=== PATIENT | male | born 1990 | race Caucasian/White ===

== ENCOUNTER 2024-03-11 16:42 | Emergency (ER) | payer MEDICARE, MEDICAID, SELFPAY ==
[2024-03-11 16:47] VITALS: BP 122/85; PULSE 73; RESP 18; TEMP 36.8; O2SAT 95
--- NOTE | 2024-03-11 17:10 | ED_ITS ---
HPI - Head Injury General Chief complaint: Head Injury/Pain Stated complaint: hit head Time Seen by Provider: 03/11/24 16:59 History of Present Illness HPI Narrative: This 33-year-old male is a resident at [facility] and comes in because of a head injury that occurred prior to arrival. He comes in because of protocol at their facility when any such injury occurs. He was sitting on the toilet 10 lost his balance and hit his forehead. He does not have any sign of injury. He did not have any loss of consciousness. He does not report any nausea or headache. He was able to get up and function normally. Related Data Home Medications ?Medication ?Instructions ?Recorded ?Confirmed cenobamate 100 mg tablet (Xcopri) 100 mg PO DAILY 06/01/23 06/01/23 cenobamate 200 mg tablet (Xcopri) 200 mg PO DAILY 06/01/23 06/01/23 diazepam 5 mg/mL oral concentrate mg PO 06/01/23 06/01/23 (Diazepam Intensol) lacosamide 100 mg tablet 100 mg PO DAILY 06/01/23 06/01/23 lacosamide 200 mg tablet mg PO 06/01/23 06/01/23 minocycline 100 mg capsule 100 mg PO BID 06/01/23 06/01/23 sertraline 100 mg tablet 100 mg PO DAILY 06/01/23 06/01/23 Allergies Allergy/AdvReac Type Severity Reaction Status Date / Time No Known Drug Allergies Allergy Verified 06/01/23 09:28 Review of Systems Status of ROS: Reports: 10 or more systems reviewed and unremarkable except as noted in History and below Narrative: Constitutional: No fevers, no weight gain or loss. Eyes: No discharge. No vision changes. HENT: No congestion, no sore throat, no ear pain. Cardiovascular: No chest pain, no palpitations. Respiratory: No shortness of breath, no wheezes, no cough. Gastrointestinal: No abdominal pain, no vomiting, no diarrhea. Genitourinary: No dysuria, no hematuria. Musculoskeletal: Normal range of motion. Skin: No rashes, no pruritis. Neurological: No dizziness, weakness, sensory change, speech change. Endo/Heme/Allergies: No bruising or bleeding. No polydipsia. Pysch: no suicidality, no anxiety, no insomnia. All other systems reviewed and are negative. PFSH PFSH Social History (Updated 06/01/23 @ 12:08 by Michaelle Villegas NP) Narrative: Lives in a senior living What is your current living situation?: I presently have a place to live Smoking Status: Never smoker Do you use any of these nicotine containing products: None How often do you have a drink containing alcohol: never AUDIT-C Alcohol total score: 0 Non-prescribed substance use: denies use Exam Narrative: Exam Narrative: Constitutional: Well-developed, well-nourished, no acute distress. HEENT: Normocephalic, atraumatic. No sign of injury. No hematoma or skin injury. Neck: Normal range of motion. Nontender. Supple. Heart: Regular. No murmurs. Normal rate. Intact distal pulses. Lungs: Clear to auscultation. No chest discomfort. No wheezes, rhonchi, or rales. Abdomen: Normal bowel sounds. Nontender. No rebound tenderness. Genitalia: Deferred. Back: No midline tenderness. Normal range of motion. Extremities: Normal range of motion. No injury. Skin: Intact. No rash. Warm. No erythema or pallor. Neurologic: No altered sensation. No weakness. Alert and oriented. Psychiatric: No suicidality. No anxiety or depression. No insomnia. Nursing notes and vitals signs are reviewed. Const: Vital Signs, click to edit/add: Vital Signs - 24 hr 03/11/24 16:47 Temperature 98.3 F Pulse Rate [Right Pulse Oximeter] 73 Respiratory Rate 18 Blood Pressure [Ri ght Upper Arm] 122/85 Pulse Oximetry 95 Oxygen Delivery Me thod Room Air Course Vital Signs Vital signs: Initial Vital Signs Temperature 98.3 F 03/11/24 16:47 Temperature Source Temporal Artery Scan 03/11/24 16:47 Pulse Rate 73 03/11/24 16:47 Respiratory Rate 18 03/11/24 16:47 Blood Pressure 122/85 03/11/24 16:47 Blood Pressure Mean 97 03/11/24 16:47 Blood Pressure Position Sitting 03/11/24 16:47 Pulse Oximetry 95 03/11/24 16:47 Oxygen Delivery Method Room Air 03/11/24 16:47 Vital Signs Temperature 98.3 F 03/11/24 16:47 Pulse Rate 73 03/11/24 16:47 Respiratory Rate 18 03/11/24 16:47 Blood Pressure 122/85 03/11/24 16:47 Pulse Oximetry 95 03/11/24 16:47 Oxygen Delivery Method Room Air 03/11/24 16:47 Temperature 98.3 F 03/11/24 16:47 Pulse Rate 73 03/11/24 16:47 Respiratory Rate 18 03/11/24 16:47 Blood Pressure 122/85 03/11/24 16:47 Pulse Oximetry 95 03/11/24 16:47 Oxygen Delivery Method Room Air 03/11/24 16:47 MDM - Head Injury MDM Narrative Medical decision making narrative: This patient comes in by protocol from the [facility] for evaluation after head injury. He bumped his head in the bathroom but is not showing any sign of injury and has no other symptoms or report of discomfort. I did review nexus rules and indicated no need for any further imaging or other workup. The patient is okay to be discharged home. Discharge Plan Discharge Clinical Impression: Closed head injury Patient Disposition: Home w/ Parent or Adult Condition: Stable Additional Instructions: Continue current plans. Use [id number] medicines as needed and directed. Follow up with MD return if worsening. Prescriptions: No Action lacosamide 200 mg tablet PO Xcopri 200 mg tablet 200 mg PO DAILY lacosamide 100 mg tablet 100 mg PO DAILY Xcopri 100 mg tablet 100 mg PO DAILY minocycline 100 mg capsule 100 mg PO BID sertraline 100 mg tablet 100 mg PO DAILY diazepam [Diazepam Intensol] 5 mg/mL concentrate PO Follow Up/Referrals: Edward Robbins MD [Primary Care Provider] - Stand Alone Forms: [employer] Info Instructions
== END 2024-03-11 17:42 | disposition home or self-care (01) ==
LOC: ED 17:18
PROVIDERS: Emergency Provider Emergency Medicine Emergency Medical Services; PCP Student in an Organized Health Care Education/Training Program
DX: S09.90XA Unspecified injury of head, initial encounter (principal); W22.8XXA Striking against or struck by other objects, initial encounter
CPT/HCPCS: 99282; 99284

== ENCOUNTER 2025-03-14 07:56 | Outpatient (CLI) | payer MEDICARE, MEDICAID, SELFPAY ==
[2025-03-14 09:16] LABS: Albumin* 4.4 g/dL (3.3-5.0); Chloride* 102 mmol/L (96-114); Sodium* 140 mmol/L (135-149)
[2025-03-14 09:17] LABS: Potassium* 5.0 mmol/L (3.6-5.1)
[2025-03-14 09:19] LABS: Anion Gap 6 mEq/L (7-15); Blood Urea Nitrogen* 17 mg/dL (5-24); Carbon Dioxide* 32 mmol/L (20-32); Creatinine* 1.0 mg/dL (0.5-1.5); Estimated Glomerular Filt Rate 101 ml/min; Hematocrit* 46.3 % (37.0-53.0); Hemoglobin* 14.9 gm/dL (13.5-17.5); Immature Granulocytes Pct Auto 0.3 %; Mean Corpuscular HGB Conc 32 gm/dL (32-36); Mean Corpuscular Hemoglobin 30 pg (26-34); Mean Corpuscular Volume 93 fL (80-100); RDW Coefficient of Variation % 12.5 % (11.5-15.5); Red Blood Count* 4.96 m/uL (4.30-5.90); White Blood Count* 3.63 K/uL (4.50-11.00)
[2025-03-14 09:20] LABS: Alanine Aminotransferase* 26 U/L (4-50); Alkaline Phosphatase* 74 U/L (40-150); Aspartate Amino Transferase* 29 U/L (12-35); Bilirubin Total* 0.3 mg/dL (0.1-1.5); Calcium* 9.9 mg/dL (8.4-10.6); Glucose* 102 mg/dL (60-115); Immature Granulocytes Abs Auto 0.00 K/uL (0.00-0.30); Lymphocytes Absolute Auto 1.10 K/uL (0.90-2.90); Total Protein* 7.9 g/dL (6.0-8.3)
[2025-03-14 09:21] LABS: Slide Review Reflex No
== END 2025-03-14 07:57 | disposition home or self-care (01) ==
LOC: NPINS 07:58
PROVIDERS: PCP Student in an Organized Health Care Education/Training Program; Visit Provider Psychiatry & Neurology Neurology
DX: G40.119 Localization-related (focal) (partial) symptomatic epilepsy and epileptic syndromes with simple partial seizures, intractable, without status epilepticus (principal)
CPT/HCPCS: 80053; 80235; 85025